=== PATIENT | female | born 1955 | race Caucasian/White ===

== ENCOUNTER → 2020-11-14 | Outpatient (CLI) | payer OTHER | LOC: CAT 13:58 | PROVIDERS: ATTEND Internal Medicine | DX: Z13.6 Encounter for screening for cardiovascular disorders (principal); I25.10 Atherosclerotic heart disease of native coronary artery without angina pectoris; E78.00 Pure hypercholesterolemia, unspecified ==

== ENCOUNTER → 2020-11-28 | Outpatient (CLI) | payer OTHER | LOC: SJCVCIMAG 11-24 08:37 | PROVIDERS: ATTEND Internal Medicine | DX: I65.23 Occlusion and stenosis of bilateral carotid arteries (principal); E78.5 Hyperlipidemia, unspecified ==

== ENCOUNTER → 2020-12-11 | Outpatient (CLI) | payer OTHER ==
[~2020-12-11] VITALS: Ht 154.9 cm; Wt 86.2 kg
[~2020-12-11] MED LIST: ACID CONTROLLER20 MG PO; ALLEGRA ALLERG180 MG PO; ASA81BEC PO; CELEBREX 200 M200 M1 PO; DESYREL150 MG PO; HYDROCHLOROTHIA25 M1 PO; LEXAPRO 10 MG T10 M2 PO; LIPITOR40 MG PO; LISINOPRIL20 MG PO; MUPIROCIN1 GM; PLAVIX 75 MG TA75 MG PO; TRAZODONE HCL50 MG PO; ZADITOR5 M1 OPHTHALMIC
[2020-12-11 09:21] LABS: HEMOGLOBIN 12.2 gm/dL (12.0-15.0); MCHC 33.8 g/dL (28.0-37.0); RBC 4.05 mil/uL (4.20-5.00); WBC 6.2 thou/uL (4.0-11.0)
[2020-12-11 09:28] VITALS: BP 130/52
[2020-12-11 09:38] LABS: CALCIUM 9.2 mg/dL (8.5-10.1); CREATININE 0.9 mg/dL (0.6-1.0); POTASSIUM 4.3 mmol/L (3.5-5.1)
--- NOTE | 2020-12-11 15:09 | NUR ---
URINE AND MRSA SWAB FROM NARES COLLECTED PER ORDERS
[2020-12-11 15:18] LABS: URINE BILIRUBIN NEGATIVE (Negative); URINE BLOOD NEGATIVE (Negative); URINE CLARITY CLEAR; URINE COLOR YELLOW; URINE GLUCOSE-RANDOM* NEGATIVE (Negative); URINE KETONES NEGATIVE (Negative); URINE LEUKOCYTES-REFLEX NEGATIVE (Negative); URINE NITRITE-REFLEX NEGATIVE (Negative); URINE PROTEIN (DIPSTICK) NEGATIVE (Negative); URINE SPECIFIC GRAVITY <= 1.005 (1.005-1.035); URINE UROBILINOGEN 0.2 E.U./dl (0.2-1.0)
--- NOTE | 2020-12-13 11:36 | HC ---
[facility] [place] [address] CONSULTATION Name: KARSON CUNNINGHAM Room #: REG SUELLEN M.R.#: [id number] Admission: 12/11/20 Attend Phys: Addison Carlisle MD Discharge: Date of : 57 Report #: [id number] THIS REPORT FOR: cc: Addison Leonardo MD, David P. MD Forman, John M. MD ~ DOC #: [id number] Heladio Larson MD DATE OF SERVICE: 12/11/2020 REASON FOR CONSULTATION: We were asked by Dr. Carlisle to see Carolyn Cunningham. The patient is a 65-year-old with carotid artery disease. The patient had a screening done electively and a significant right internal carotid stenosis was noted. Arteriography today demonstrates an 80% right internal carotid lesion. The patient denies such symptoms of stroke, transient ischemic attack, amaurosis fugax or vertebrobasilar insufficiency. The patient is treated for hypertension and hyperlipidemia. The patient also had an Inspire device placed for sleep apnea on the right side in the past. MEDICATIONS: At home includes aspirin, atorvastatin, Celebrex, Lexapro, hydrochlorothiazide, lisinopril, trazodone. ALLERGIES: THE PATIENT STATES SHE IS ALLERGIC TO GABAPENTIN AND PENICILLIN. The patient does not know what the reaction to PENICILLIN is, but states she has had other antibiotics, possibly including KEFLEX. SOCIAL HISTORY: The patient is . She is a never smoker. FAMILY HISTORY: Significant for cardiac disease in father and hypertension in brother. REVIEW OF SYSTEMS: GENERAL: Denies weight change, fever. EYES: Denies vision change. HENT: Denies headache, hearing problems, sinus problems. RESPIRATORY: Denies cough, shortness of breath. CARDIOVASCULAR: Denies angina or palpitations. GASTROINTESTINAL: Denies nausea, vomiting, diarrhea or blood. GENITOURINARY: Denies urgency, frequency or blood. MUSCULOSKELETAL: Denies bone or joint pain. SKIN: Denies rash or infection. NEUROLOGIC: Denies motor or sensory dysfunction. HEMATOLOGIC: Denies bruisability or bleeding. ENDOCRINE: Denies goiter or tremor. PHYSICAL EXAMINATION: [facility] [address] [place] [address] CONSULTATION Name: KARSON CUNNINGHAM Room #: REG [facility].#: [id number] Admission: 12/11/20 Attend Phys: Addison Carlisle MD Discharge: Date of : 57 Report #: [id number] GENERAL: The patient is lying in bed, status post arteriogram. HEENT: No scleral icterus. NECK: No mass. There is a grade 2 right cervical bruit. CHEST: Clear to auscultation. HEART: Rhythm regular, no murmur. ABDOMEN: Soft. No mass. EXTREMITIES: No clubbing, cyanosis or edema. VASCULAR: 2+ dorsalis pedis pulses, 2+ radial pulses. NEUROLOGIC: No obvious motor or sensory dysfunction. MUSCULOSKELETAL: No bone or joint asymmetry or deformity. SKIN: No rash or infection. PSYCHIATRIC: Shows insight into problem and is appropriate and is oriented x3. ASSESSMENT: The patient has a high-grade asymptomatic right internal carotid stenosis. I have discussed the risks and details of repair, options and alternatives, risks include but are not limited to bleeding, infection, anesthesia risks, and stroke and/or neurologic dysfunction. The patient understands that this is on the same side as the Inspire device. We have chosen to recommend TCAR, as we think it will disturb the device ____ patient understands the rationale for this. I have discussed the importance of starting aspirin, Plavix, and statin for at least a week prior to surgery and for a month afterwards. The patient understands and will comply. Thank you for the consult. Heladio Larson MD JF/KDA <ELECTRONICALLY SIGNED> By: Heladio Larson MD 12/13/20 1136 [id number] Heladio Larson MD /nt
== END | disposition home or self-care (01) ==
LOC: CATH 07:53
PROVIDERS: Surgery Vascular Surgery; ATTEND Nuclear Medicine Nuclear Cardiology
DX: I65.23 Occlusion and stenosis of bilateral carotid arteries (principal); I70.1 Atherosclerosis of renal artery; I10 Essential (primary) hypertension; I73.9 Peripheral vascular disease, unspecified; M79.605 Pain in left leg; M79.604 Pain in right leg; I25.10 Atherosclerotic heart disease of native coronary artery without angina pectoris; E78.00 Pure hypercholesterolemia, unspecified; E78.5 Hyperlipidemia, unspecified; Z98.890 Other specified postprocedural states; Z79.899 Other long term (current) drug therapy; Z86.73 Personal history of transient ischemic attack (TIA), and cerebral infarction without residual deficits; Z87.891 Personal history of nicotine dependence; Z88.0 Allergy status to penicillin; Z88.8 Allergy status to other drugs, medicaments and biological substances

== ENCOUNTER → 2020-12-15 | Outpatient (CLI) | payer OTHER ==
[2020-12-15 12:29] LABS: ABSOLUTE NEUTROPHILS 5.1 thou/uL (1.4-8.2); BASOPHILS 0.8 % (0.0-2.0); EOSINOPHILS 4.2 % (0.0-3.0); HEMATOCRIT 37.9 % (37.0-47.0); HEMOGLOBIN 12.7 gm/dL (12.0-15.0); LYMPHOCYTES 18.6 % (24.0-44.0); MCH 30.3 pg (26.0-34.0); MCHC 33.6 g/dL (28.0-37.0); MCV 90.3 fL (80.0-100.0); PLATELET COUNT 371 thou/uL (150-400); POLYS 68.4 % (36.0-66.0); RDW 13.2 % (10.5-14.5); WBC 7.5 thou/uL (4.0-11.0)
[2020-12-15 12:46] LABS: APTT 31.4 Seconds (24.5-32.8); INR 0.98; PROTIME 10.7 Seconds (10.5-12.1)
[2020-12-15 12:55] LABS: CALCIUM 9.4 mg/dL (8.5-10.1); CREATININE 0.8 mg/dL (0.6-1.0); POTASSIUM 4.6 mmol/L (3.5-5.1); TOTAL BILIRUBIN 0.4 mg/dL (0.2-1.0); TOTAL PROTEIN 8.3 g/dL (6.4-8.2)
== END ==
LOC: PAC 11:06
PROVIDERS: ATTEND Surgery Vascular Surgery
DX: Z01.818 Encounter for other preprocedural examination (principal); I65.21 Occlusion and stenosis of right carotid artery; I77.9 Disorder of arteries and arterioles, unspecified; M17.12 Unilateral primary osteoarthritis, left knee

== ENCOUNTER 2020-12-18 06:12 | Inpatient (IN) | payer OTHER ==
[2020-12-18] VITALS (29 sets, daily range): BP systolic 91–128; BP diastolic 30–65
[~2020-12-18] VITALS: Ht 157.5 cm; Wt 87.5 kg
[2020-12-19] VITALS (13 sets, daily range): BP systolic 102–149; BP diastolic 35–56
--- NOTE | 2020-12-19 04:57 | NUR ---
Patient watched TV and talked on the phone during the evening. C/O pain/ache in right neck. Pain med given early evening. Otherwise intact neurologically. Patient went to bed/sleep about 2200. Patient has an implanted device for her sleep apnea that she turns on before she goes to sleep and this device stimulates her when she is apneic during the night. Patient splept fairly well. Apnea noted. Patient did desaturate, sometimes down into the 70's. Supplemental oxygen increased to 5l per NC, this didn't seem to help much. Patient stated that she does drop her O2 at night and her doctors are aware of this. Hear rate and rhythm stable. Blood pressure varies up and down and seems to be related to her apnea. Was able to decrease Cardene to 2.5 mg/hr. Cuff pressure much lower than arterial line. Adequate U/O. AM labs drawn, awating results. Patient is progressing towards goals. See documentation on interventions for assessment details.
[2020-12-19 04:58] LABS: HEMATOCRIT 31.2 % (37.0-47.0); HEMOGLOBIN 10.4 gm/dL (12.0-15.0); MCH 30.1 pg (26.0-34.0); MCHC 33.4 g/dL (28.0-37.0); MCV 90.1 fL (80.0-100.0); RBC 3.47 mil/uL (4.20-5.00)
[2020-12-19 05:03] LABS: CALCIUM 7.8 mg/dL (8.5-10.1); CREATININE 0.7 mg/dL (0.6-1.0); POTASSIUM 4.9 mmol/L (3.5-5.1)
--- NOTE | 2020-12-19 11:00 | NUR ---
Discussed during am rounds. She dc home, no needs today.
--- NOTE | 2020-12-19 12:24 | NUR ---
ASSUMMED CARE OF THIS PATIENT AT 0700 TODAY. SMITH CATH DC'D AND PATIENT UP TO BEDSIDE COMMODE AND ABLE TO VOID. BP MEDS GIVEN AND CARDENE DC'D. ALYSSA DC'D BP IS WITHIN PARAMATERS OF SBP BP LESS THAN 160 MMHG. PATIENT DISCHARGED TO HOME AT 1155. DISCHARGE INSTRUCTIONS REVIEWED WITH THE PATIENT AND VERBALIZED UNDERSTANDING.
--- NOTE | 2020-12-25 12:55 | O ---
[facility] [place] [address] OPERATIVE REPORT Name: ROSALBA CUNNINGHAM Room #: 250-P [facility] M.R.#: [id number] Admission: 12/18/20 Attend Phys: Heladio Larson MD Discharge: 12/19/20 Date of : 57 Report #: [id number] THIS REPORT FOR: cc: Addison Leonardo MD, David P. MD Forman, John M. MD ~ DOC #: [id number] Heladio Larson MD DATE OF SERVICE: 12/18/2020 PREOPERATIVE DIAGNOSIS: Right carotid artery stenosis. POSTOPERATIVE DIAGNOSIS: Right carotid artery stenosis. OPERATION: Right transcarotid arterial revascularization with intraoperative arteriograms. SURGEON: Heladio Larson MD. and Dr. Addison Carlisle. ANESTHESIA: General. INDICATIONS: The patient is a 65-year-old who was found to have a tight carotid stenosis by noninvasive testing. The patient has been asymptomatic. Arteriography demonstrated this to be an 80% stenosis. Left carotid has trivial disease. FINDINGS AND TECHNIQUE: After general anesthesia was established, a low collar incision was made on the right side. The sternocleidomastoid was divided between the heads of the muscle and the jugular vein was retracted laterally to expose the common carotid artery. Vascular control of this was accomplished and a 5-0 pursestring was placed. Separately, the right femoral vein was identified with the ultrasound and entered with an arterial needle, followed by guidewire, and then using Seldinger technique, the venous end of the TCAR arteriovenous fistula was placed and secured. 10,000 units of heparin were given and at 3 minutes, an ACT was checked and found to be satisfactory. The common carotid was entered with the arterial needle followed by guidewire, and then using Seldinger technique, the arterial end of the AV fistula was placed and secured. An arteriogram was taken after proximal control was ascertained and good blood pressure was maintained and this showed the carotid stenosis. The guidewire was [facility] [address] [address] OPERATIVE REPORT Name: ROSALBA CUNNINGHAM Room #: 250-P [facility] M.R.#: [id number] Admission: 12/18/20 Attend Phys: Heladio Larson MD Discharge: 12/19/20 Date of : 57 Report #: [id number] passed into the internal carotid and then predilatation angioplasty was done using a 4 x 30 balloon. Arteriogram showed this to be satisfactory and then an 8 x 30 Enroute stent was placed and deployed satisfactorily. This was followed by post-dilatation angioplasty with a 5 x 30 Cordis balloon. Two-minute wait was performed and then a final arteriogram was taken that showed good correction of the lesion and good stent placement. With this information, antegrade flow was reestablished. The fistula was disconnected and the arterial end was removed and the pursestring was tied tightly and additional 6-0 suture was placed for secure closure. The venous end of the fistula was removed and pressure was applied to the groin. After protamine was given and hemostasis was satisfactory, the neck wound was closed in layers. The patient was taken to the recovery area in satisfactory condition where her neurologic progress was monitored. All counts were reported as correct. Heladio Larson MD JF/TERRI <ELECTRONICALLY SIGNED> By: Heladio Larson MD 12/25/20 1255 [id number] Heladio Larson MD /nt
== END 2020-12-19 12:49 | disposition home or self-care (01) | DRG 36 ==
LOC: PRE → ICU 06:12 → TBA 06:12 → PRE 11:33 → ICU 12:47 → PRE 13:44 → ICU 12-19 12:49
PROVIDERS: Physician Assistant; ADMIT Surgery Vascular Surgery; ATTEND Surgery Vascular Surgery
PROC: 03HY32Z Insertion of Monitoring Device into Upper Artery, Percutaneous Approach (ICD-10-PCS; principal; 2020-12-18)
PROC: 037K3DZ Dilation of Right Internal Carotid Artery with Intraluminal Device, Percutaneous Approach (ICD-10-PCS; principal; 2020-12-18)
PROC: 05HY33Z Insertion of Infusion Device into Upper Vein, Percutaneous Approach (ICD-10-PCS; principal; 2020-12-18)
DX: I65.21 Occlusion and stenosis of right carotid artery (principal); I25.10 Atherosclerotic heart disease of native coronary artery without angina pectoris; I10 Essential (primary) hypertension; E78.00 Pure hypercholesterolemia, unspecified; F41.9 Anxiety disorder, unspecified; K21.9 Gastro-esophageal reflux disease without esophagitis; G47.33 Obstructive sleep apnea (adult) (pediatric); Z88.0 Allergy status to penicillin; Z88.8 Allergy status to other drugs, medicaments and biological substances; Z86.73 Personal history of transient ischemic attack (TIA), and cerebral infarction without residual deficits; Z90.710 Acquired absence of both cervix and uterus; Z79.82 Long term (current) use of aspirin; Z79.899 Other long term (current) drug therapy
CPT/HCPCS: 10078; 47375; 48889; 50010; 50101; 50386; 50417; 50455; 51301; 52287; 54118; 56524; 56526; 56527; 56528; 62110; 62900; 65020; 70005

== ENCOUNTER → 2021-02-11 | Outpatient (CLI) | payer OTHER | LOC: SJCVCIMAG 01-28 07:24 | PROVIDERS: ATTEND Nuclear Medicine Nuclear Cardiology | DX: I65.22 Occlusion and stenosis of left carotid artery (principal); Z95.828 Presence of other vascular implants and grafts ==